=== PATIENT | male | born 1995 | race Caucasian/White ===

== ENCOUNTER 2018-06-14 19:50 | Emergency (ER) | payer BC ==
[2018-06-14 21:48] LABS: ABS Basophils 0 10^3/ul (0-0.2); ABS Eosinophils 0.2 10^3/ul (0-0.6); ABS Lymphocytes 1.6 10^3/ul (1.0-4.8); ABS Monocytes 0.4 10^3/ul (0-0.8); ABS Nucleated RBC 0 10^3/ul; Eosinophil % 2.6 % (0-6); Hematocrit 44 % (42-52); Hemoglobin 14.8 g/dl (14.0-18.0); Lymphocyte % 25.4 % (25-47); Mean Corpuscular HGB Conc 34 g/dl (31-36); Mean Corpuscular Hemoglobin 32 pg (27-31); Mean Corpuscular Volume 93 fL (80-94); Mean Platelet Volume 8.4 um3 (7.4-10.4); Nucleated Red Blood Cells % 0; Platelet Count 236 10^3/ul (150-450); Red Blood Count 4.68 10^6/ul (4.00-5.40); Red Cell Distribution Width 13 % (10.5-15); White Blood Count 6.2 10^3/ul (3.5-10.8)
[2018-06-14 22:19] LABS: EGFR Non-African American 109.7 (>60)
[2018-06-14] MEDS ORDERED: Ibuprofen TAB* 400 MG PO ONE (22:35)
--- NOTE | 2018-06-14 23:01 | RAD ---
EXAM: US Abdomen Limited, Appendix EXAM DATE/TIME: 06/14/2018 10:31 PM CLINICAL HISTORY: 22 years old, male; Pain and signs and symptoms; Abdominal tenderness; Abdominal pain; Other: Rlq pain TECHNIQUE: Real-time ultrasound of the right lower quadrant with image documentation. COMPARISON: No relevant prior studies available. FINDINGS: The appendix is not discretely identified. A small amount of free fluid is visualized at the right lower quadrant. IMPRESSION: Appendix is not identified and appendicitis is not excluded. Small volume of free fluid at the right lower quadrant, nonspecific. Followup may be considered.
[2018-06-14 23:45] LABS: Urine Appearance Clear; Urine Blood Negative (Negative); Urine Color Yellow; Urine Ketones Negative (Negative); Urine Protein Negative (Negative); Urine Specific Gravity 1.017 (1.010-1.030); Urine Urobilinogen Negative (Negative)
[2018-06-15 00:07] VITALS: BP 113/72
--- NOTE | 2018-06-15 03:46 | ED ---
Abdominal Pain/Male - HPI Summary HPI Summary: Patient is a 22 y/o M w/ c/o abdominal pain onsetting at 0900. In the room, he reports pain started at upper abdomen and gradually moved to RLQ. Two hours ago , he states cabrera has been located moreso in his testicular and rectal area as well as his right hip. In the room, he notes pain has lessened. However, he denies any back pain. He denies fever, N/V, reports normal bowel movements and urination. PMHx of IBS is noted. On triage, pain is rated 9/10 and it is noted that movement aggravates pain. Treatment prior to ED was pepto bismol x 2, align probiotic. Home medications and allergies reviewed. - History of Current Complaint Chief Complaint: EDAbdPain Stated Complaint: ABD PAIN Time Seen by Provider: 06/14/18 22:14 Hx Obtained From: Patient Onset/Duration: Lasting Hours - onset this morning at 0900, Still Present Severity Currently: Severe - 9/10 Pain Intensity: 9 Pain Scale Used: 0-10 Numeric - 9/10 on triage Location: Epigastric, Groin - presently, Other - previously in upper abdomen and RLQ, currently in rectal area, right hip Aggravating Factor(s): Movement Alleviating Factor(s): Nothing Associated Signs And Symptoms: Negative: Fever, Back Pain, Constipation, Urinary Symptoms, Nausea, Vomiting - Allergies/Home Medications Allergies/Adverse Reactions: Allergies Allergy/AdvReac Type Severity Reaction Status Date / Time Penicillins Allergy Unknown Verified 06/14/18 22:15 Reaction Details PMH/Surg Hx/FS Hx/Imm Hx GI History: Reports: Hx Irritable Bowel Sensory History: Denies: Hx Legally Blind, Hx Deafness Opthamlomology History: Denies: Hx Legally Blind EENT History: Denies: Hx Deafness - Immunization History Date of Tetanus Vaccine: utd Date of Influenza Vaccine: none Infectious Disease History: No Infectious Disease History: Denies: Traveled Outside the [place] in Last 30 Days - Family History Known Family History: Positive: Other - NEGATIVE: crohn's - Social History Alcohol Use: Occasionally Substance Use Type: Reports: None Smoking Status (MU): Never Smoked Tobacco Review of Systems Negative: Fever Positive: Abdominal Pain, Other - NEGATIVE: abnormal bowel movement, urinary Sx . Negative: Vomiting, Nausea Positive: other - right hip pain, testicular pain, rectal pain Positive: Other - NEGATIVE: back pain All Other Systems Reviewed And Are Negative: Yes Physical Exam - Summary Physical Exam Summary: Appearance: Well appearing, no pain distress Skin: warm, dry, reflects adequate perfusion Head/face: normal Eyes: EOMI, RAHUL ENT: normal Neck: supple, non-tender Respiratory: CTA, breath sounds present Cardiovascular: RRR, pulses symmetrical Abdomen: non-tender, soft Bowel Sounds: present Musculoskeletal: normal, strength/ROM intact Neuro: normal, sensory motor intact, A&Ox3 Triage Information Reviewed: Yes Vital Signs On Initial Exam: Initial Vitals Temp Pulse Resp BP Pulse Ox 97.6 F 73 16 117/75 98 06/14/18 19:55 06/14/18 19:55 06/14/18 19:55 06/14/18 19:55 06/14/18 19:55 Vital Signs Reviewed: Yes Diagnostics - Vital Signs Vital Signs Temp Pulse Resp BP Pulse Ox 06/15/18 00:06 97.7 F 69 16 113/72 97 06/14/18 21:43 98 F 75 16 115/80 96 06/14/18 19:55 97.6 F 73 16 117/75 98 - Laboratory Lab Results: Lab Results 06/14/18 06/14/18 06/14/18 Range/Units 21:39 21:39 21:42 WBC 6.2 (3.5-10.8) 10^3/ul RBC 4.68 (4.00-5.40) 10^6/ul Hgb 14.8 (14.0-18.0) g/dl Hct 44 (42-52) % MCV 93 (80-94) fL MCH 32 H (27-31) pg MCHC 34 (31-36) g/dl RDW 13 (10.5-15) % Plt Count 236 (150-450) 10^3/ul MPV 8.4 (7.4-10.4) um3 Neut % (Auto) 64.4 (38-83) % Lymph % (Auto) 25.4 (25-47) % Rock % (Auto) 7.1 H (0-7) % Eos % (Auto) 2.6 (0-6) % Baso % (Auto) 0.5 (0-2) % Absolute Neuts (auto) 4.0 (1.5-7.7) 10^3/ul Absolute Lymphs (auto) 1.6 (1.0-4.8) 10^3/ul Absolute Monos (auto) 0.4 (0-0.8) 10^3/ul Absolute Eos (auto) 0.2 (0-0.6) 10^3/ul Absolute Basos (auto) 0 (0-0.2) 10^3/ul Absolute Nucleated RBC 0 10^3/ul Nucleated RBC % 0 Sodium 139 (135-145) mmol/L Potassium 4.1 (3.5-5.0) mmol/L Chloride 104 (101-111) mmol/L Carbon Dioxide 29 (22-32) mmol/L Anion Gap 6 (2-11) mmol/L BUN 22 (6-24) mg/dL Creatinine 0.87 (0.67-1.17) mg/dL Est GFR ( Amer) 132.8 (>60) Est GFR (Non-Af Amer) 109.7 (>60) BUN/Creatinine Ratio 25.3 H (8-20) Glucose 89 (70-100) mg/dL Lactic Acid 0.5 (0.5-2.0) mmol/L Calcium 9.8 (8.6-10.3) mg/dL Total Bilirubin 0.70 (0.2-1.0) mg/dL AST 19 (13-39) U/L ALT 20 (7-52) U/L Alkaline Phosphatase 42 (34-104) U/L C-Reactive Protein < 1.00 (<8.01) mg/L Total Protein 7.5 (6.4-8.9) g/dL Albumin 4.9 (3.2-5.2) g/dL Globulin 2.6 (2-4) g/dL Albumin/Globulin Ratio 1.9 (1-3) Lipase 14 (11.0-82.0) U/L Urine Color Urine Appearance Urine pH (5-9) Ur Specific Faber (1.010-1.030) Urine Protein (Negative) Urine Ketones (Negative) Urine Blood (Negative) Urine Nitrate (Negative) Urine Bilirubin (Negative) Urine Urobilinogen (Negative) Ur Leukocyte Esterase (Negative) Urine Glucose (Negative) 06/14/18 Range/Units 23:35 WBC (3.5-10.8) 10^3/ul RBC (4.00-5.40) 10^6/ul Hgb (14.0-18.0) g/dl Hct (42-52) % MCV (80-94) fL MCH (27-31) pg MCHC (31-36) g/dl RDW (10.5-15) % Plt Count (150-450) 10^3/ul MPV (7.4-10.4) um3 Neut % (Auto) (38-83) % Lymph % (Auto) (25-47) % Rock % (Auto) (0-7) % Eos % (Auto) (0-6) % Baso % (Auto) (0-2) % Absolute Neuts (auto) (1.5-7.7) 10^3/ul Absolute Lymphs (auto) (1.0-4.8) 10^3/ul Absolute Monos (auto) (0-0.8) 10^3/ul Absolute Eos (auto) (0-0.6) 10^3/ul Absolute Basos (auto) (0-0.2) 10^3/ul Absolute Nucleated RBC 10^3/ul Nucleated RBC % Sodium (135-145) mmol/L Potassium (3.5-5.0) mmol/L Chloride (101-111) mmol/L Carbon Dioxide (22-32) mmol/L Anion Gap (2-11) mmol/L BUN (6-24) mg/dL Creatinine (0.67-1.17) mg/dL Est GFR ( Amer) (>60) Est GFR (Non-Af Amer) (>60) BUN/Creatinine Ratio (8-20) Glucose (70-100) mg/dL Lactic Acid (0.5-2.0) mmol/L Calcium (8.6-10.3) mg/dL Total Bilirubin (0.2-1.0) mg/dL AST (13-39) U/L ALT (7-52) U/L Alkaline Phosphatase (34-104) U/L C-Reactive Protein (<8.01) mg/L Total Protein (6.4-8.9) g/dL Albumin (3.2-5.2) g/dL Globulin (2-4) g/dL Albumin/Globulin Ratio (1-3) Lipase (11.0-82.0) U/L Urine Color Yellow Urine Appearance Clear Urine pH 5.0 (5-9) Ur Specific Faber 1.017 (1.010-1.030) Urine Protein Negative (Negative) Urine Ketones Negative (Negative) Urine Blood Negative (Negative) Urine Nitrate Negative (Negative) Urine Bilirubin Negative (Negative) Urine Urobilinogen Negative (Negative) Ur Leukocyte Esterase Negative (Negative) Urine Glucose Negative (Negative) Result Diagrams: 06/14/18 21:39 06/14/18 21:39 Lab Statement: Any lab studies that have been ordered have been reviewed, and results considered in the medical decision making process. - Radiology abdomen X-ray Xray Interpretation: No Acute Changes Radiology Interpretation Completed By: ED Physician - no stone or appendicolith ; no bowel gas - Ultrasound No standard instances Ultrasound Interpretation: Positive (See Comments) Ultrasound Interpretation Completed By: Radiologist - Appendix is not identified and appendicitis is not excluded. Small volume of free fluid at the RLQ, nonspecific, followup may be considered. This report was reviewed by ED physician. Re-Evaluation - Re-Evaluation First Eval Re-Evaluation Time: 23:59 Change: Improved Comment: Patient reports feeling better. Discussed results of labs and tests with patient. He will be discharged to home. He is agreeable with this plan. Abdominal Pain Fem Course/Dx - Course Course Of Treatment: Patient with a history of irritable bowel syndrome with a recent GI workup that included a rule out of Crohn's, colitis. No significant pain now and his exam is benign. Laboratories also benign. KUB did not show significant constipation. Urinalysis negative. He will follow up closely with local doctors. He was given referral line and [facility] follow- up. - Diagnoses Differential Diagnosis/HQI/PQRI: Benign Prostatic Hyperplasia, Bowel Obstruction , Constipation, Diverticulitis, Gall Bladder Disease, Pancreatitis, Peptic Ulcer Disease, Urinary Tract Infection Provider Diagnoses: Acute abdominal pain, Hx of irritable bowel syndrome Discharge - Sign-Out/Discharge Documenting (check all that apply): Patient Departure - discharge - Discharge Plan Condition: Improved Disposition: HOME Prescriptions: Hyoscyamine Sulfate [Levsin/Sl] 0.125 mg SL Q4H PRN #30 sub PRN Reason: abdominal cramping Patient Education Materials: Irritable Bowel Syndrome (ED), Acute Abdominal Pain (ED) Referrals: [facility] [Outside] [facility] [Outside] Additional Instructions: Return with fever, vomiting, increased pain, worse, new symptoms or other concerns as discussed. If you're not moving her bowels regularly some stool softener may help. Call the [facility] for prompt follow-up. You' re also given a number they can refer you to her primary care doctor in the area. - Billing Disposition and Condition Condition: IMPROVED Disposition: Home - Attestation Statements Document Initiated by [place]: Yes Documenting Scribe: Jg Newell Provider For Whom Lefty is Documenting (Include Credential): Jhon Lira MD Scribe Attestation: I, Jg Newell, scribed for Jhon Lira MD on 06/15/18 at 0631. Scribe Documentation Reviewed: Yes Provider Attestation: The documentation as recorded by the Jg masterson accurately reflects the service I personally performed and the decisions made by me, Jhon Lira MD
--- NOTE | 2018-06-15 07:44 | RAD ---
INDICATION: Abdominal pain COMPARISON: None TECHNIQUE: A single view of the abdomen is submitted. FINDINGS: Bones: There are no acute bony findings. Soft tissues: The soft tissues appear normal. The psoas margins are sharp. Bowel gas pattern: Normal Calcifications: There are no abnormal calcifications. Other: None IMPRESSION: NEGATIVE EXAMINATION. R0
== END 2018-06-15 00:06 | disposition home or self-care (01) ==
LOC: ED 19:50
DX: R10.9 Unspecified abdominal pain (principal); K58.9 Irritable bowel syndrome, unspecified; Z88.0 Allergy status to penicillin
CPT/HCPCS: 36415; 74018; 76705; 80053; 81003; 83605; 83690; 85025; 86140; 99282; A9270-GY